=== PATIENT | female | born 1990 | race African-American/Black ===

== ENCOUNTER 2016-09-13 07:31 | Day surgery (SDC) | payer OTHER ==
[2016-09-12 09:18] VITALS: BMI 39.4
[2016-09-13 08:07] LABS: BASOPHIL 1.1 % (0-2.0); EOSINOPHIL 1.6 % (0-4.5); MCHC 32.9 g/dl (32.0-36.0); MEAN CELL VOLUME 85.1 fl (80-96); MEAN PLT VOLUME 9.4 fl (7.5-11.1); NEUTROPHILS 55.7 % (42.8-82.8); PLATELET COUNT 163 K/MM3 (134-434); RDW 14.8 % (11.6-15.6); WHITE BLOOD COUNT 5.8 K/mm3 (4.0-10.0)
[2016-09-13 08:39] LABS: ALBUMIN 3.6 g/dl (3.4-5.0); ALK PHOS 67 U/L (45-117); ANION GAP 9 (8-16); BILIRUBIN,TOTAL 0.8 mg/dL (0.2-1.0); CALCIUM 8.8 mg/dL (8.5-10.1); CO2 26 mmol/L (21-32); COCKROFT - GAULT 172.4225; CREATININE 0.8 mg/dL (0.55-1.02); GLUCOSE,RANDOM 96 mg/dL (74-106); SGOT/AST 18 U/L (15-37); SGPT/ALT 24 U/L (12-78)
[2016-09-13] MEDS ORDERED: MIDAZOLAM HCL 2 MG/2 ML SINGLE DOSE VIAL ONE (09:29)
[2016-09-13] MEDS ORDERED: PROPOFOL 20 ML ONE ×2 (09:30→09:40)
[2016-09-13] MEDS ORDERED: oxyCODONE HCL 5 MG TABLET PO PRN (10:22)
[2016-09-13] MEDS ORDERED: ONDANSETRON 4 MG/2 ML VIAL IVPUSH PRN (10:22)
[2016-09-13] MEDS ORDERED: PROMETHAZINE HCL 25 MG/1 ML VIAL IVPUSH PRN (10:22)
[2016-09-13] MEDS ORDERED: ACETAMINOPHEN 325 MG TABLET (FP) PO PRN (10:32)
[2016-09-13] MEDS ORDERED: IBUPROFEN 400 MG TABLET (FP) PO PRN (10:32)
--- NOTE | 2016-09-13 10:32 | HP ---
History & Physical Update - History History: No Change - Physical Physical: No Change - Assessment Assessment: No Change - Plan Plan: No Change
--- NOTE | 2016-09-13 10:33 | OP ---
Operative Note - Note: Operative Date: 09/13/16 Pre-Operative Diagnosis: missed Operation: Suction DC Post-Operative Diagnosis: Same as Pre-op Surgeon: Skye Hanson Anesthesia: General Estimated Blood Loss (mls): 30 Operative Report Dictated: Yes
[2016-09-13 11:18] VITALS: TEMP 98.1
[2016-09-13 14:48] VITALS: BP 127/54; PULSE 79
--- NOTE | 2016-09-16 12:59 | PATH ---
Surgical Pathology Report Patient Name: CUONG CIFUENTES Med. Rec. #: [id number] /Age/Gender: 1990 (Age: 26) / F Account: [id number] Location: [facility] SURGICAL Taken: 09/13/2016 Received: 09/13/2016 Reported: 09/16/2016 Physicians: Skye Hanson M.D. Specimen(s) Received PRODUCTS OF CONCEPTION Clinical History Missed Final Diagnosis CONTENTS OF UTERUS: NO SOMATIC TISSUE IDENTIFIED. CHORIONIC VILLI PRESENT, PARTIALLY FIBROTIC AND HYDROPIC. FRAGMENTS OF PARTIALLY NECROTIC DECIDUA. Comment: Chromosomal studies are pending; results will be reported in an addendum. Electronically Signed Clinton Garcia M.D. Gross Description Received fresh labeled "contents of uterus" is an 8.5 x 5.0 x 0.7 cm aggregate of cortez red soft tissue fragments. Villous tissue is identified. No definite somatic tissue is identified. A membership sales representative portion is placed in RPMI solution and sent for chromosomal analysis. An additional membership sales representative portion is submitted in one cassette. /09/13/201609/13/2016
--- NOTE | 2016-09-18 22:49 | OP ---
DATE OF OPERATION: 09/13/2016 PREOPERATIVE DIAGNOSIS: Missed . POSTOPERATIVE DIAGNOSIS: Missed . PROCEDURE: Suction dilation and curettage. SURGEON: Skye Hanson MD ANESTHESIA: General. DESCRIPTION OF PROCEDURE: The patient was taken to the operating room, placed in the dorsal lithotomy position, prepped and draped in the usual sterile fashion. Speculum was placed in the vagina. Anterior lip of the cervix was grasped with single tooth tenaculum. Cervix was then dilated to accommodate size 7 suction curette. Suction curettage followed by sharp curettage was then done. All specimens submitted to Pathology for formal analysis. The patient tolerated the procedure well. ESTIMATED BLOOD LOSS: About 30 mL. SKYE HANSON M.D. [id number]
== END 2016-09-13 12:25 | disposition home or self-care (01) ==
LOC: JASU-SURG 07:31
PROVIDERS: ATTEND Obstetrics & Gynecology
PROC: 10D17ZZ Extraction of Products of Conception, Retained, Via Natural or Artificial Opening (ICD-10-PCS; principal; 2016-09-13 09:00)
DX: O02.1 Missed abortion (principal)
CPT/HCPCS: 36415; 80053; 85025; 86850; 86900; 86901; 88305-TC; 94760